=== PATIENT | female | born 1990 | race Caucasian/White ===

== ENCOUNTER 2019-07-07 18:29 | Emergency (ER) | payer BC, MEDICAID ==
[2019-07-07 19:18] LABS: CHLORIDE,CL 98 mmol/L (98-107); SODIUM,NA 137 mmol/L (136-145)
--- NOTE | 2019-07-07 19:48 | EDM.PDOC ---
ED HPI GENERAL MEDICAL PROBLEM - General Chief Complaint: Respiratory Problem Stated Complaint: Cough, Fever, Body Aches Time Seen by Provider: 07/07/19 18:38 Source of Information: Reports: Patient History Limitations: Reports: No Limitations - History of Present Illness INITIAL COMMENTS - FREE TEXT/NARRATIVE: Patient here with complaint of fever/cough. Developed body aches around 4 days ago. Over weekend started to have irritated cough/nonproductive, some nausea and loose stools. Today has fever and felt light headed. Took Tylenol cold prep around noon. Exposed to a boyfriend who was diagnosed with pneumonia. Has access to albuterol nebs at home ([facility]) and says that the neb did not really help the cough. Cough described as tickle in throat. - Related Data Allergies Allergy/AdvReac Type Severity Reaction Status Date / Time Penicillins Allergy Cannot Verified 07/07/19 18:30 Remember Home Meds: Home Meds Benzonatate [Tessalon Perle] 100 mg PO Q8H PRN #30 capsule 07/07/19 [Rx] Phenylephrine/Dm/Acetaminop/Gg [Tylenol Cold-Flu Severe Caplet] 2 tab PO Q4HR [History] Past Medical History - Past Health History Medical/Surgical History: Denies Medical/Surgical History Social & Family History - Tobacco Use Smoking Status *Q: Never Smoker ED ROS GENERAL - Review of Systems Review Of Systems: See Below Constitutional: Reports: Fever (today). Denies: Chills, Malaise, Weakness, Fatigue, Night Sweats, Diaphoresis, Decreased Appetite, Weight Loss HEENT: Reports: Sinus Problem, Throat Pain. Denies: Ear Pain, Eye Discharge, Throat Swelling, Vision Change Respiratory: Reports: Cough. Denies: Shortness of Breath, Wheezing, Pleuritic Chest Pain, Sputum, Hemoptysis Cardiovascular: Reports: Lightheadedness. Denies: Chest Pain, Dyspnea on Exertion, Edema, Palpitations, Syncope GI/Abdominal: Reports: Diarrhea, Nausea. Denies: Constipation, Hematochezia, Melena, Vomiting : Reports: No Symptoms Musculoskeletal: Reports: Other (body aches) Skin: Reports: No Symptoms Neurological: Reports: Dizziness Psychiatric: Reports: No Symptoms ED EXAM, GENERAL - Physical Exam Exam: See Below General Appearance: Alert, WD/WN, No Apparent Distress Eye Exam: Bilateral Eye: EOMI, PERRL Ears: Normal External Exam, Normal Canal, Hearing Grossly Normal, Normal TMs Nose: Normal Inspection Throat/Mouth: Normal Inspection, Normal Lips, Normal Voice, No Airway Compromise Head: Atraumatic, Normocephalic Neck: Normal Inspection, Supple, Non-Tender, Full Range of Motion Respiratory/Chest: No Respiratory Distress, Lungs Clear, Normal Breath Sounds, No Accessory Muscle Use, Chest Non-Tender Cardiovascular: Regular Rate, Rhythm (95), No Murmur GI/Abdominal: Normal Bowel Sounds, Soft, Non-Tender (Female) Exam: Deferred Rectal (Female) Exam: Deferred Back Exam: No: CVA Tenderness (L), CVA Tenderness (R) Extremities: Normal Inspection Neurological: Alert, Oriented, Normal Cognition, No Motor/Sensory Deficits Psychiatric: Normal Affect, Normal Mood Skin Exam: Warm, Dry, Intact, Normal Color, No Rash Course - Vital Signs Last Recorded V/S: Last Vital Signs Temp 39.2 C H 07/07/19 18:32 Pulse 120 H 07/07/19 18:32 Resp 16 07/07/19 18:32 BP 135/70 07/07/19 18:32 Pulse Ox 98 07/07/19 18:32 - Orders/Labs/Meds Orders: Active Orders 24 hr Category Date Time Status Chest 2V [CR] Stat Exams 07/07/19 18:39 Ordered CULTURE STREP A CONFIRMATION [RM] Stat Lab 07/07/19 19:15 Results STREP SCRN A RAPID W CULT CONF [RM] Stat Lab 07/07/19 19:15 Results UA W/MICROSCOPIC [URIN] Stat Lab 07/07/19 18:38 Ordered Labs: Laboratory Tests 07/07/19 07/07/19 07/07/19 Range/Units 18:50 18:50 18:50 WBC 8.1 (4.0-10.2) K/uL RBC 4.92 (3.77-5.09) M/uL Hgb 13.8 (11.7-15.5) g/dL Hct 42.2 (34.0-46.0) % MCV 85.8 (84.0-98.0) fL MCH 28.0 L (28.2-33.3) pg MCHC 32.7 (31.7-36.0) g/dL RDW 13.5 (11.2-14.1) % Plt Count 188 (150-350) K/uL Neut % (Auto) 69.5 (45.0-80.0) % Lymph % (Auto) 21.0 (10.0-50.0) % Newberry % (Auto) 9.3 (2.0-14.0) % Eos % (Auto) 0.0 (0.0-5.0) % Baso % (Auto) 0.2 (0.0-2.0) % Neut # (Auto) 5.60 (1.40-7.00) K/uL Lymph # (Auto) 1.69 (0.50-3.50) K/uL Newberry # (Auto) 0.75 (0.00-1.00) K/uL Eos # (Auto) 0.00 (0.00-0.50) K/uL Baso # (Auto) 0.02 (0.00-0.20) K/uL Sodium 137 (136-145) mmol/L Potassium 4.1 (3.5-5.1) mmol/L Chloride 98 (98-107) mmol/L Carbon Dioxide 27.9 (21.0-32.0) mmol/L BUN 9 (7-18) mg/dL Creatinine 0.79 (0.51-1.17) mg/dL Est Cr Clr Drug Dosing 95.40 mL/min Estimated GFR (MDRD) > 60 mL/min Glucose 105 (74-106) mg/dL Lactic Acid 0.8 (0.4-2.0) mmol/L Calcium 9.2 (8.5-10.1) mg/dL Magnesium 1.9 (1.8-2.4) mg/dL Total Bilirubin 0.3 (0.2-1.0) mg/dL AST 17 (15-37) U/L ALT 21 (12-78) U/L Alkaline Phosphatase 65 (46-116) IU/L Total Protein 8.0 (6.4-8.2) g/dL Albumin 4.0 (3.4-5.0) g/dL - Re-Assessments/Exams Free Text/Narrative Re-Assessment/Exam: CBC/Chem/Lactic/chest xray/influenza/rapid strep ordered. Unremarkable. Normal WBC. Suspect elevated heart rate due to fever/illness. Patient non-toxic on exam with no focal findings. Suspect viral syndrome. Results discussed with patient. Recommend resting/good hydration and observing for any additional changes. To follow up as needed if there is worsening, or if does not follow normal viral course. Tessalon prescribed for cough. Patient comfortable with plan. Departure - Departure Time of Disposition: 19:44 Disposition: Home, Self-Care 01 Condition: Good Clinical Impression: Viral illness - Discharge Information *PRESCRIPTION DRUG MONITORING PROGRAM REVIEWED*: Not Applicable *COPY OF PRESCRIPTION DRUG MONITORING REPORT IN PATIENT TRISTAN: Not Applicable Prescriptions: Benzonatate [Tessalon Perle] 100 mg PO Q8H PRN #30 capsule PRN Reason: Cough Instructions: Viral Illness, Adult Referrals: Jerica Robertson PA-C [Primary Care Provider] - Forms: ED Department Discharge Additional Instructions: Your blood work, rapid strep, influenza, and chest xrays were negative for any acute findings this evening. Rest, stay hydrated. Tylenol for fevers as needed. Follow up as needed if this does not appear to follow a normal viral course or if you have sudden worsening symptoms. Sepsis Event Note - Evaluation Sepsis Screening Result: Possible Sepsis Risk - Focused Exam Vital Signs: Vital Signs Temp Pulse Resp BP Pulse Ox 07/07/19 18:32 39.2 C H 120 H 16 135/70 98 Date Exam was Performed: 07/07/19 Time Exam was Performed: 19:48 - My Orders Last 24 Hours: My Active Orders 07/07/19 18:38 UA W/MICROSCOPIC [URIN] Stat 07/07/19 18:39 Chest 2V [CR] Stat 07/07/19 19:15 CULTURE STREP A CONFIRMATION [RM] Stat STREP SCRN A RAPID W CULT CONF [] Stat - Assessment/Plan Last 24 Hours: My Active Orders 07/07/19 18:38 UA W/MICROSCOPIC [URIN] Stat 07/07/19 18:39 Chest 2V [CR] Stat 07/07/19 19:15 CULTURE STREP A CONFIRMATION [RM] Stat STREP SCRN A RAPID W CULT CONF [] Stat
== END 2019-07-07 19:55 | disposition home or self-care (01) ==
LOC: LL.ED 18:29
DX: B34.9 Viral infection, unspecified (principal); Z88.0 Allergy status to penicillin
CPT/HCPCS: 36415; 71046; 80053; 83605; 83735; 85025; 87081; 87430; 87804; 99283-25